=== PATIENT | male | born 1955 | race Caucasian/White ===

== ENCOUNTER → 2017-08-05 | Outpatient (CLI) | payer MEDICAID ==
[~2017-08-05] MED LIST: AMIO200T7 PO; AMIO400T4 PO; ASPI-515 PO; ATOR40TA78 PO; BUDE10.2 INH; CARV12.52 PO; DUTA0.5C PO; ESCI20TA PO; ESOM40CA PO; HYDR-3241 PO; ISOS60TA36 PO; LEVO125T5 PO; LISI5TAB7 PO; LORA10TA3 PO; METF500T4 PO; NITR0.4T28 SL; OXYC-302 PO; POLY1GRA PO; RIVA20TA PO; TIZA2CAP PO; TRAZ150T62 PO
== END | disposition home or self-care (01) ==
LOC: CFH 11:10
PROVIDERS: ATTEND Internal Medicine Cardiovascular Disease
DX: E78.00 Pure hypercholesterolemia, unspecified (principal); I10 Essential (primary) hypertension; I25.5 Ischemic cardiomyopathy; I48.0 Paroxysmal atrial fibrillation; I48.2 Chronic atrial fibrillation; Z95.1 Presence of aortocoronary bypass graft
CPT/HCPCS: 71046

== ENCOUNTER 2018-02-01 13:01 | Inpatient (IN) | payer MEDICAID ==
[~2018-02-01] VITALS: Ht 193 cm; Wt 113.7 kg
[~2018-02-01 13:01] MED LIST changes: -AMIO400T4 PO; +AMIO400T5 PO; -METF500T4 PO; +METF500T5 PO
[2018-02-01 13:55] LABS: BASOPHILS # (AUTO) 0.02 x10^3/uL (0-0.1); BASOPHILS % (AUTO) 0 % (0-1); EOSINOPHILS % (AUTO) 1 % (1-7); LYMPHOCYTES # (AUTO) 1.19 x10^3/uL (1-3.4); LYMPHOCYTES % (AUTO) 14 % (22-44); MD NO; MEAN CORPUSCULAR HEMOGLOBIN 31.6 pg (27.5-34.5); MEAN CORPUSCULAR HGB CONC 32.9 g/dL (33.2-36.2); MEAN PLATELET VOLUME 8.5 fL (7.4-10.4); MONOCYTES % (AUTO) 9 % (2-9); NEUTROPHILS # (AUTO) 6.45 x10^3/uL (1.8-6.8); NEUTROPHILS % (AUTO) 75 % (42-75); PLATELET COUNT 206 x10^3/uL (130-400); RED BLOOD COUNT 4.43 x10^6/uL (4.38-5.82); RED CELL DISTRIBUTION WIDTH 14.8 % (9.4-14.8)
[2018-02-01 14:00] LABS: ALANINE AMINOTRANSFERASE 32 U/L (12-78); ALBUMIN 3.8 g/dL (3.4-5.0); ANION GAP 8 mmol/L (5-15); CALCIUM 8.9 mg/dL (8.5-10.1); CHLORIDE 108 mmol/L (98-107); CREATININE 1.38 mg/dL (0.7-1.3)
[2018-02-01 14:01] LABS: INTERNATIONAL NORMALIZED RATIO 1.05 (0.93-1.1); PROTHROMBIN TIME 10.9 Seconds (9.6-11.5)
[2018-02-01 14:04] LABS: ALKALINE PHOSPHATASE 73 U/L (45-117); BILIRUBIN,TOTAL 0.4 mg/dL (0.2-1.0); TOTAL PROTEIN 7.8 g/dL (6.4-8.2); TROPONIN I < 0.015 ng/mL (0.000-0.045)
[2018-02-01] MEDS ORDERED: PANT40TA5 PO (14:04)
[2018-02-01] MEDS ORDERED: CETI-237 PO (14:04)
[2018-02-01] MEDS ORDERED: GABA600T2 PO (14:04)
[2018-02-01] MEDS ORDERED: MONT10TA9 PO (14:06)
[2018-02-01] MEDS ORDERED: SODIUM CHLORIDE 0.9% 1,000 ML IV SCH (15:23)
[2018-02-01] MEDS ORDERED: DOCUSATE 100 MG CAPSULE PO PRN (15:30)
[2018-02-01] MEDS ORDERED: POLYETHYLENE GLYCOL 17 GM PACKET PO PRN (15:30)
[2018-02-01] MEDS ORDERED: ENOXAPARIN 40 MG/0.4 ML SQ SCH (15:30)
[2018-02-01] MEDS ORDERED: BISACODYL 10 MG SUPP PR PRN (15:30)
[2018-02-01] MEDS ORDERED: ACETAMINOPHEN 325 MG TABLET PO PRN (15:30)
[2018-02-01] MEDS ORDERED: morphine SULFATE 10 MG/ML, 1ML IVPush PRN (15:30)
[2018-02-01] MEDS ORDERED: ONDANSETRON 2MG/ML, 2ML IVPush PRN (15:30)
[2018-02-01] MEDS ORDERED: hydrALAzine 20 MG/ML, 1ML IVPush PRN (15:30)
[2018-02-01] MEDS ORDERED: NITROGLYCERIN 0.4 MG BOTTLE (25 TABS) SL PRN (15:30)
[2018-02-01 15:59] LABS: THYROID STIMULATING HORMONE 0.454 mIU/L (0.358-3.740)
[2018-02-01 16:15] VITALS: BP 132/85
[2018-02-01] MEDS: TIZANIDINE 2MG TABLET PO SCH ×2 (16:44→20:47)
[2018-02-01] MEDS: GABAPENTIN 300 MG CAPSULE PO SCH ×2 (16:45→20:46)
[2018-02-01 19:11] LABS: TROPONIN I < 0.015 ng/mL (0.000-0.045)
[2018-02-01 19:30] VITALS: BP 104/69
[2018-02-01] MEDS: CARVEDILOL 6.25 MG TABLET PO SCH (20:47)
[2018-02-01] MEDS: TEMPLATE NON-FORMULARY MED. (Budesonide/Formoterol Fumarate (Symbicort 160-4.5 Mcg Inhaler INH SCH (21:00)
[2018-02-01] MEDS ORDERED: ATORVASTATIN 40 MG TABLET PO SCH (21:00)
[2018-02-01] MEDS ORDERED: RIVAROXABAN 20 MG TABLET PO SCH (21:00)
[2018-02-01] MEDS ORDERED: TRAZODONE 150MG TABLET PO SCH (21:00)
[2018-02-02 01:59] VITALS: BP 140/90
[2018-02-02] MEDS ORDERED: ASPIRIN 325 MG TABLET EC PO SCH (06:00)
[2018-02-02 07:24] VITALS: BP 135/84
[2018-02-02] MEDS ORDERED: REGADENOSON 0.4 MG/5 ML SYRINGE ONE (07:24)
[2018-02-02] MEDS: TEMPLATE NON-FORMULARY MED. (Budesonide/Formoterol Fumarate (Symbicort 160-4.5 Mcg Inhaler INH SCH (07:40)
[2018-02-02] MEDS ORDERED: DUTASTERIDE 0.5 MG CAPSULE PO SCH (09:00)
[2018-02-02] MEDS ORDERED: LISINOPRIL 5 MG TABLET PO SCH (09:00)
[2018-02-02] MEDS ORDERED: LEVOTHYROXINE 125 MCG TABLET PO SCH (09:00)
[2018-02-02] MEDS ORDERED: MONTELUKAST 10 MG TABLET PO SCH (09:00)
[2018-02-02] MEDS ORDERED: CITALOPRAM 20 MG TABLET PO SCH (09:00)
[2018-02-02] MEDS ORDERED: AMIODARONE 200 MG TABLET PO SCH (09:00)
[2018-02-02 10:37] VITALS: BP 164/90
[2018-02-02] MEDS: CARVEDILOL 6.25 MG TABLET PO SCH (10:38)
[2018-02-02] MEDS: GABAPENTIN 300 MG CAPSULE PO SCH ×2 (10:39→16:04)
[2018-02-02] MEDS: TIZANIDINE 2MG TABLET PO SCH ×2 (10:39→16:04)
[2018-02-02 10:52] LABS: ALBUMIN 3.6 g/dL (3.4-5.0); ANION GAP 6 mmol/L (5-15); CALCIUM 8.9 mg/dL (8.5-10.1); CHLORIDE 110 mmol/L (98-107); CREATININE 1.16 mg/dL (0.7-1.3)
[2018-02-02 12:01] VITALS: BP 119/78
== END 2018-02-02 17:46 | disposition home or self-care (01) | DRG 311 ==
LOC: ED 14:35 → EDIP 14:39 → 5SO 16:04
PROVIDERS: ADMIT Internal Medicine; ATTEND Internal Medicine
DX: I24.9 Acute ischemic heart disease, unspecified (principal); N17.0 Acute kidney failure with tubular necrosis; E03.9 Hypothyroidism, unspecified; E11.65 Type 2 diabetes mellitus with hyperglycemia; E78.5 Hyperlipidemia, unspecified; I25.5 Ischemic cardiomyopathy; I48.0 Paroxysmal atrial fibrillation; I11.9 Hypertensive heart disease without heart failure; I25.10 Atherosclerotic heart disease of native coronary artery without angina pectoris; Z95.5 Presence of coronary angioplasty implant and graft; Z95.1 Presence of aortocoronary bypass graft; Z87.891 Personal history of nicotine dependence; Z83.3 Family history of diabetes mellitus; Z82.49 Family history of ischemic heart disease and other diseases of the circulatory system; Z79.84 Long term (current) use of oral hypoglycemic drugs; I25.2 Old myocardial infarction; Z90.49 Acquired absence of other specified parts of digestive tract; Z90.89 Acquired absence of other organs; Z80.9 Family history of malignant neoplasm, unspecified; Z79.899 Other long term (current) drug therapy; Z79.82 Long term (current) use of aspirin
CPT/HCPCS: 36415; 70450; 71045; 78452; 80053; 80069; 83735; 83880; 84443; 84484; 85025; 85610; 85730; 93005; 93017; 99285; J2785; A9502; C9898; J7030

== ENCOUNTER 2018-06-01 14:02 | Outpatient (CLI) | payer MEDICAID ==
[~2018-06-01 14:02] MED LIST changes: +CETI-237 PO; +GABA600T2 PO; +METF500T17 PO; -METF500T5 PO; +MONT10TA9 PO; +PANT40TA5 PO
== END 2018-06-08 12:22 | disposition home or self-care (01) ==
LOC: CFH 14:02
PROVIDERS: ATTEND Nurse Practitioner
DX: Z12.2 Encounter for screening for malignant neoplasm of respiratory organs (principal); J98.2 Interstitial emphysema; K46.9 Unspecified abdominal hernia without obstruction or gangrene; Z95.1 Presence of aortocoronary bypass graft; Z87.891 Personal history of nicotine dependence
CPT/HCPCS: G0297

== ENCOUNTER → 2018-08-05 | Outpatient (CLI) | payer MEDICAID | END | disposition home or self-care (01) | LOC: CVU 12:37 | PROVIDERS: ATTEND Internal Medicine Cardiovascular Disease | DX: I08.3 Combined rheumatic disorders of mitral, aortic and tricuspid valves (principal); I25.5 Ischemic cardiomyopathy; I10 Essential (primary) hypertension; E78.5 Hyperlipidemia, unspecified; Z95.1 Presence of aortocoronary bypass graft | CPT/HCPCS: 93306 ==